=== PATIENT | female | born 1930 ===

== ENCOUNTER 2017-05-27 13:19 | Emergency (ER) | payer OTHER ==
[2017-05-27 14:12] VITALS: TEMP 99
--- NOTE | 2017-05-27 15:05 | C.PDOC ---
History Of Present Illness 86 year old female presents to the ER with a complaint of right lower back painfor the past 3-4 days. Patient states the pain worsens when laying down. Daughter denies recent injury, change in bowel movement, nausea, vomiting, fever , diarrhea, dysuria, or vaginal bleeding, motor weakness, numbness, urinary or bowel incontinence or retention. Time Seen by Provider: 05/27/17 14:46 Chief Complaint (Nursing): Back Pain History Per: Patient History/Exam Limitations: no limitations Onset/Duration Of Symptoms: Days Current Symptoms Are (Timing): Still Present Quality Of Discomfort: Unable To Describe Previous Symptoms: None Associated Symptoms: None Recent travel outside of the [place]: No Past Medical History Reviewed: Historical Data, Nursing Documentation, Vital Signs Vital Signs: Last Vital Signs Temp 99 F 05/27/17 14:07 Pulse 95 H 05/27/17 17:00 Resp 20 05/27/17 17:00 BP 150/93 H 05/27/17 17:00 Pulse Ox 98 05/27/17 17:00 Family History: States: Unknown Family Hx - Social History Hx Alcohol Use: No Hx Substance Use: No - Immunization History Hx Influenza Vaccination: No Hx Pneumococcal Vaccination: No Review Of Systems Except As Marked, All Systems Reviewed And Found Negative. Genitourinary: Negative for: Dysuria, Vaginal Bleeding Musculoskeletal: Positive for: Other Physical Exam - Physical Exam Additional Physical Exam Comments: Constitutional: No acute distress. Head: Normocephalic. Atraumatic. Eyes: PERRL. ENT: Moist mucous membranes. Neck: Supple. No midline tenderness. Cardiovascular: Regular rate. Radial pulse 2+ bilaterally. Chest: No tenderness. Respiratory: Clear to auscultation bilaterally. GI: Soft. Nontender. Nondistended. Back: No CVA tenderness. No midline tenderness. Musculoskeletal: No tenderness or swelling of extremities. Skin: No rash. No rash. Neurologic: Alert, no focal deficit. ED Course And Treatment O2 Sat by Pulse Oximetry: 100 Medical Decision Making Medical Decision Making: FINDINGS: LOWER THORAX: Unremarkable. LIVER: Unremarkable. No gross lesion or ductal dilatation. GALLBLADDER AND BILE DUCTS: Unremarkable. PANCREAS: Unremarkable. No gross lesion or ductal dilatation. SPLEEN: Unremarkable. ADRENALS: Unremarkable. No mass. KIDNEYS AND URETERS: No renal mass, calculus or hydronephrosis. Suspect 7 mm nonobstructing mid right ureteral calculus. VASCULATURE: Unremarkable. No aortic aneurysm. BOWEL: Unremarkable. No obstruction. No gross mural thickening. APPENDIX: Not identified. No secondary findings to suggest appendicitis. PERITONEUM: Unremarkable. No free fluid. No free air. LYMPH NODES: Unremarkable. No enlarged lymph nodes. BLADDER: Unremarkable. REPRODUCTIVE: Unremarkable. BONES: No acute fracture. OTHER FINDINGS: None. IMPRESSION: Suspected 7 mm nonobstructing mid right ureteral calculus. No renal calculus. No perinephric fluid. No hydronephrosis. Patient in no distresss. Will advise continuing acetaminophen and f/u with PMD. Disposition - Disposition Disposition: HOME/ ROUTINE Disposition Time: 17:37 Condition: STABLE Instructions: Low Back Pain in Adults Forms: [facility] (Lithuanian) - Clinical Impression Clinical Impression: Low back pain - Scribe Statement The provider has reviewed the documentation as recorded by the Scribe Sj Heredia All medical record entries made by the Scribe were at my direction and personally dictated by me. I have reviewed the chart and agree that the record accurately reflects my personal performance of the history, physical exam, medical decision making, and the department course for this patient. I have also personally directed, reviewed, and agree with the discharge instructions and disposition.
[2017-05-27 17:01] VITALS: BP 150/93; PULSE 95; RESP 20
--- NOTE | 2017-05-27 17:34 | CT ---
PROCEDURE: CT Abdomen and Pelvis without intravenous contrast HISTORY: R flank pain COMPARISON: None. TECHNIQUE: Without contrast.. Contrast Dose: 0 0 Radiation dose: Total exam DLP = Total exam DLP = 196.26 mGy-cm. This CT exam was performed using one or more of the following dose reduction techniques: Automated exposure control, adjustment of the mA and/or kV according to patient size, and/or use of iterative reconstruction technique. FINDINGS: LOWER THORAX: Unremarkable. LIVER: Unremarkable. No gross lesion or ductal dilatation. GALLBLADDER AND BILE DUCTS: Unremarkable. PANCREAS: Unremarkable. No gross lesion or ductal dilatation. SPLEEN: Unremarkable. ADRENALS: Unremarkable. No mass. KIDNEYS AND URETERS: No renal mass, calculus or hydronephrosis. Suspect 7 mm nonobstructing mid right ureteral calculus. VASCULATURE: Unremarkable. No aortic aneurysm. BOWEL: Unremarkable. No obstruction. No gross mural thickening. APPENDIX: Not identified. No secondary findings to suggest appendicitis. PERITONEUM: Unremarkable. No free fluid. No free air. LYMPH NODES: Unremarkable. No enlarged lymph nodes. BLADDER: Unremarkable. REPRODUCTIVE: Unremarkable. BONES: No acute fracture. OTHER FINDINGS: None. IMPRESSION: Suspected 7 mm nonobstructing mid right ureteral calculus. No renal calculus. No perinephric fluid. No hydronephrosis.
[2017-05-27 17:39] VITALS: O2SAT 100
== END 2017-05-27 17:50 | disposition home or self-care (01) ==
LOC: C.ER 13:19
DX: M54.5 Low back pain (principal)